=== PATIENT | female | born 1935 | race Caucasian/White ===

== ENCOUNTER → 2020-03-29 11:42 | Outpatient (CLI) | payer MEDICARE, BC ==
[2015-03-09 06:31] VITALS: BMI 29.3
[~2020-03-29 11:42] MED LIST: ACETAMINOPHEN500 M1 PO; ARICEPT5 MG PO; ATIVAN0.5 MG; ATIVAN0.5 MG PO; B-12 DOTS500 MCG PO; BENADRYL25 MG PO; CALCIUM 600+D T1 TA1 PO; COUMADIN5 MG PO; ELIQUIS2.5 MG PO; FLORANEX / LACT1 TAB PO; HYDROCODONE-APA1 TAB PO; KLONOPIN1 MG PO; MS CONTIN15 MG PO; NORCO 10/325 TA1 TA1 PO; OMEGA-3100 MG PO; OYSCO 500+D TAB1 TAB; OYSCO 500+D TAB1 TAB PO; PRILOSEC20 MG PO; PROTONIX40 MG PO; PROZAC40 MG PO; REGLAN5 MG PO; VIACTIV PO; VITAMIN B-121000 MC3 PO; VITAMIN D31000 UNIT PO; VOLTAREN100 GM TP; ZYRTEC10 MG PO
== END | disposition home or self-care (01) ==
LOC: D.US 11:42
PROVIDERS: ATTEND Orthopaedic Surgery
DX: I82.409 Acute embolism and thrombosis of unspecified deep veins of unspecified lower extremity (principal)